=== PATIENT | female | born 1955 | race Caucasian/White ===

== ENCOUNTER 2017-12-16 00:04 | Observation (INO) | payer MEDICAID ==
[~2017-12-16] VITALS: Ht 162.6 cm; Wt 84.8 kg
[2017-12-16] VITALS (8 sets, daily range): BP systolic 116–163; BP diastolic 61–84; BMI 30.6
--- NOTE | ~2017-12-16 | HEMODYNAMI ---
PATIENT:COOPER MCDERMOTT MEDICAL RECORD: [id number] : 53 [id number] ADMISSION DATE: 12/16/17 Generatedon:12/16/201716:13 Patient name: COPOER MCDERMOTT Patient #: [id number] SSN: : 1955 Date of study: 12/16/2017 Page: Of Hemodynamic Procedure Report Patient Data Patient Demographics Procedure consent was obtained First Name: COOPER Gender: Female Last Name: SHARRON : 1955 Patient #: [id number] Age: 62 year(s) Race: Unknown Additional ID: [id number] Contact details [address]: [address] [place] [address] State: [place] City: [place] Zip code: [address] Past Medical History Allergies: No known allergies Admission Admission Data Admission Date: 12/16/2017 Admission Time: 3:20 [facility] Procedure Types Cath Procedure Diagnostic Procedure LHC LH w/Coronaries Sedation Charges Moderate Sedation up to 15 minutes PCI Procedure Coronary Stent Coronary Stent Initial Procedure Description Procedure Date Procedure Date: 12/16/2017 Procedure Start Time: 14:46 Procedure End Time: 15:23 Procedure Staff Name Function Costa Pete RT Scrub Elidia Awad RN Nurse Gino Simon MD Performing Physician Kaylyn Waggoner RT Scrub Timo Shah RT Washery Boss Procedure Data Cath Procedure Fluoroscopy Diagnostic fluoroscopy Total fluoroscopy Time: 7.4 time: 7.4 min min Diagnostic fluoroscopy Total fluoroscopy dose: 884 dose: 884 mGy mGy Contrast Material Contrast Material Type Amount (ml) Isovue 300 113 Entry Location Entry Primary Successful Side Size Upsize Upsize Entry Closure Correia ccessful Closure Location (Fr) 1 (Fr) 2 (Fr) Remarks Device Remarks Radial Right 6 Fr artery Short Femoral Right 6 Fr Manual artery Short Compression Estimated blood loss: 10 ml Diagnostic catheters Device Type Used For End Catheter Placement DIAGNOSTIC Parks 110cm 5 Procedure Fr catheter ([id number]) Procedure Complications No complications Procedure Medications Medication Administration Route Dosage Zofran I.V. 4 mg Oxygen etCO2 Nasal cannula 2 l/min Lidocaine 2% added to field 20 Heparin Flush Bag added to field 2 bags (1000units/500ml NS) 0.9% NaCl I.V. 100 ml/hr Versed I.V. 1 mg Fentanyl I.V. 50 mcg Radial Cocktail I.A. 1 syringe (Verapomil 2mg/Nitro 400mcg/Heparin 1500units) Versed I.V. 1 mg Fentanyl I.V. 50 mcg Versed I.V. 1 mg Heparin Bolus I.V. 4000 units Versed I.V. 1 mg Fentanyl I.V. 50 mcg Zofran I.V. 4 mg Fentanyl I.V. 50 mcg Hemodynamics Rest Heart Rate: 73 (bpm) Pressure Samples Time Site Value (mmHg) Purpose Heart Use Rate(bpm) 14:49 LV 127/9,12 Snapshot 99 14:49 AO 159/99(126) Pullback 95 Gradients Valve Time Site Site 2 Mean SEP/DFP Peak To Heart Use 1 (mmHg) (sec/min) Peak Rate (mmHg) (bpm) Aortic 14:49 LV AO 4 8 95 159/99(126) Calculations Valve P-P Mean Valve Index Valve Source Name Gradient Area Flow (cm2) Aortic 4 4 Snapshots Pre Cath Intra NCS Post Cath Vital Signs Time Heart Resp SPO2 etCO2 NIBP (mmHg) Rhythm Pain Sedation Rate (ipm) (%) (mmHg) Status Level (bpm) 14:42:07 73 20 99 27.6 Measuring NSR 0 (11) , 10(A) No pain 14:42:28 76 16 98 24.6 181/99(154) NSR 0 (11) , 10(A) No pain 14:46:44 85 34 95 15.7 176/95(129) NSR 0 (11) , 10(A) No pain 14:51:00 91 15 94 36.6 156/90(126) NSR 0 (11) , 9(A) No pain 14:55:10 88 18 94 12.7 161/89(132) NSR 0 (11) , 9(A) No pain 14:59:22 90 14 94 25.4 162/87(133) NSR 0 (11) , 9(A) No pain 15:03:34 88 13 95 34.4 166/86(135) NSR 0 (11) , 9(A) No pain 15:07:46 82 14 96 16.4 175/96(139) NSR 0 (11) , 9(A) No pain 15:12:00 90 16 95 29.9 190/103(150) NSR 0 (11) , 9(A) No pain 15:16:20 112 22 96 11.9 184/103(129) NSR 0 (11) , 10(A) No pain 15:20:38 93 25 94 27.6 173/90(128) NSR 0 (11) , 10(A) No pain 16:00:02 60 15 95 0 116/53(76) NSR 8 (11) , 10(A) Utterly horrible 16:12:19 76 15 95 0 140/70(107) NSR 3 (11) , 10(A) Tolerable Medications Time Medication Route Dose Verified Delivered Reason Not es Effectiveness by by 14:41:06 Zofran I.V. 4 mg Gino Brenner Per physician [facility] Alex[facility] Awad RN, MD 14:43:26 Oxygen etCO2 2 l/min Gino Brenner used for Nasal [facility] Alexis Awad RN procedure cannula 14:43:32 Lidocaine 2% added 20ml Gino Christian for local to vial [facility] anesthetic field MD MORGAN 14:43:38 Heparin Flush added 2 bags Gino Christian used for Bag to [facility] procedure (1000units/500ml field MD MORGAN NS) 14:43:46 0.9% NaCl I.V. 100 Gino Brenner Per physician ml/hr [facility] Alexis Awad RN, MD 14:43:54 Versed I.V. 1 mg Gino Brenner for sedation [facility] Alexis Awad RN, MD 14:44:00 Fentanyl I.V. 50 mcg Gino Brenner for sedation [facility] Alexis Awad RN, MD 14:47:06 Radial Cocktail I.A. 1 Gino Christian for (Verapomil syringe [facility] vasodilation 2mg/Nitro MD MORGAN 400mcg/Hepari 14:49:46 Versed I.V. 1 mg Gino Christian for sedation [facility] Alexis Simon MD, MD 14:49:50 Fentanyl I.V. 50 mcg Gino Christian for sedation [facility] Alexis Simon MD, MD 14:55:12 Versed I.V. 1 mg Gino Christian for sedation [facility] Alexis Simon MD, MD 15:01:46 Heparin Bolus I.V. 4000 Gino Brenner for nicolasa ified units [facility] Alexis Awad RN anticoagulation with dr MD parks 15:06:21 Versed I.V. 1 mg Gino Brenner for sedation [facility] Alexis Awad RN, MD 15:07:51 Fentanyl I.V. 50 mcg Gino Brenner for sedation [facility] Alexis Awad RN, MD 16:02:53 Zofran I.V. 4 mg Gino Brenner Per physician [facility] Alexis Awad RN, MD 16:04:36 Fentanyl I.V. 50 mcg Gino Brenner for leg pain [facility] Alexis Awad RN, MD Procedure Log Time Note 14:11:57 Timo Correiait RT(R) sent for patient. Start room use. 14:11:58 Time tracking: Regular hours (M-F 7:00 - 5:00) 14:12:02 Plan of Care:Hemodynamics will remain stable., Cardiac rhythm will remain stable., Comfort level will be maintained., Respiratory function will remain adequate., Patient/ family verbilizes understanding of procedure., Procedure tolerated without complication., Recovers from procedure without complications.. 14:31:06 Patient received from ED to CCL 2 Alert and oriented. Tansferred to table in Supine position. 14:31:11 Warm blankets applied, and estefania hugger turned on for patient comfort. 14:31:12 Correct patient and procedure confirmed by team. 14:31:13 Signed procedure consent form obtained from patient. 14:31:14 ECG and BP/O2 sat monitors applied to patient. 14:40:19 Vital chart was started 14:40:22 Baseline sample Acquired. 14:40:30 Rhythm: sinus rhythm 14:40:31 Full Disclosure recording started 14:40:35 H&P Date Dictated: 12/16/2017 ER History on chart.. 14:40:36 Pre-op teaching completed and patient verbalized understanding. 14:40:36 Pre-procedure instructions explained to patient. 14:40:39 Family in patients room. 14:40:56 Patient allergic to No known allergies 14:41:06 Zofran 4 mg I.V. was administered by Elidia Awad RN; Per physician; 14:41:48 Is the patient allergic to Iodine/contrast media? No. 14:41:50 Is patient on blood thinner?Yes 14:41:53 ACC The patient was administered the following blood thiners within the last 24 hours: ACCPlavix 14:41:54 Patient diabetic? No. 14:41:58 Patient not . Patient is over age 55. 14:42:06 Previous problem with sedation/anesthesia? Yes NAUSEA 14:42:26 Snore? Yes 14:42:27 Sleep apnea? No 14:42:28 Opens mouth fully? Yes 14:42:28 Deviated septum? No 14:42:29 Sticks out tongue? Yes 14:42:31 Airway obstruction? No ? 14:42:34 Dentures? No ? 14:42:35 Modified Felice's test Ulnar < 7 seconds 14:42:38 Patient pain scale 0/10 ?. 14:42:47 IV patent on arrival in left hand with 0.9% NaCl at [facility]. 14:42:52 Right Radial & Right Groin area was prepped with chlora-prep and draped in sterile fashion 14:42:53 Sharps counted by scrub and verified by R.N. 14:42:53 Alarms reviewed by R. N. 14:42:55 Final Timeout: patient, procedure, and site verified with staff and physician. All members of the team are in agreement. 14:42:55 --------ALL STOP TIME OUT------ 14:42:57 Right Radial & Right Groin site verified by team. 14:43:00 Physical assessment completed. ASA score P 2 - A patient with mild systemic disease as per Gino Simon MD. 14:43:04 Sedation plan: IV Moderate Sedation Medication:Versed, Fentanyl 14:43:08 Use device set Radial Dx or PCI 14:43:10 ACIST Syringe (70572) opened to sterile field. 14:43:12 Bag Decanter (2001S) opened to sterile field. 14:43:13 ACIST Hand Control (09288) opened to sterile field. 14:43:14 Tegaderm 4 x 4 (1626W) opened to sterile field. 14:43:14 ACIST Manifold (57158) opened to sterile field. 14:43:16 Medline Cath Pack ([id number]) opened to sterile field. 14:43:17 MBrace Wrist Support ([id number]) opened to sterile field. 14:43:17 DIAGNOSTIC WIRE .035 260cm J wire (947210) opened to sterile field. 14:43:18 SHEATH 6Fr Prelude Radial ([id number]) opened to sterile field. 14:43:26 Oxygen 2 l/min etCO2 Nasal cannula was administered by Elidia Awad RN; used for procedure; 14:43:32 Lidocaine 2% 20ml vial added to field was administered by Gino Simon MD; for local anesthetic; 14:43:38 Heparin Flush Bag (1000units/500ml NS) 2 bags added to field was administered by Gino Simon MD; used for procedure; 14:43:46 0.9% NaCl 100 ml/hr I.V. was administered by Elidia Awad RN; Per physician; 14:43:54 Versed 1 mg I.V. was administered by Elidia Awad RN; for sedation; 14:44:00 Fentanyl 50 mcg I.V. was administered by Elidia Awad RN; for sedation; 14:45:48 Zero performed for pressure channel P1 14:45:53 Procedure started. 14:46:27 Local anesthetic to right radial artery with Lidocaine 2% by Gino Simon MD.INITIAL ACCESS ONLY 14:46:47 A 6 Fr Short sheath was inserted into the Right Radial artery 14:47:06 Radial Cocktail (Verapomil 2mg/Nitro 400mcg/Heparin 1500units) 1 syringe I.A. was administered by Gino Simon MD; for vasodilation; 14:47:20 A DIAGNOSTIC Parks 110cm 5 Fr catheter (803685) was advanced over the wire and used for Procedure. 14:48:01 LV gram done using MCKEON 14:48:45 Injector settings: Ml/sec: 7, Volume: 15, 14:49:12 LV hemodynamics recorded. 14:49:26 EF : 55 % 14:49:46 Versed 1 mg I.V. was administered by Gino Simon MD; for sedation; 14:49:50 Fentanyl 50 mcg I.V. was administered by Gino Simon MD; for sedation; 14:50:16 Catheter exchanged over wire. 14:50:27 UNABLE TO ENGAGE CORONARY 14:51:32 GUIDE 6FR EBU 3.5 catheter ([id number]) opened to sterile field. 14:51:38 6 Fr EBU 3.5 guide catheter was inserted over the wire 14:52:30 UNABLE TO ENGAGE LT. CORONARY WILL GO GROIN 14:52:39 Guide catheter removed. 14:52:58 Local anesthetic to right femoral artery with Lidocaine 2% by Gino Simon MD.ADDITIONAL ACCESS 14:53:14 SHEATH 6FR [place] (ZLD967) opened to sterile field. 14:53:43 A 6 Fr Short sheath was inserted into the Right Femoral artery 14:55:12 Versed 1 mg I.V. was administered by Gino Simon MD; for sedation; 14:55:51 GUIDE 5FR AR 2.0 catheter (ZW5MH86) opened to sterile field. 14:56:03 RCA angiography performed. 14:56:10 Catheter exchanged over wire. 14:56:55 GUIDE 6FR EBU 3.5 SH catheter ([id number]) opened to sterile field. 14:57:02 6 Fr EBU 3.5 guide catheter was inserted over the wire 14:58:38 LCA angiography performed. 14:58:55 Catheter exchanged over wire. 14:59:37 INFLATOR Merit BasixCompak (DA7333) opened to sterile field. 14:59:38 WHISPER 300cm guide wire ([id number]) opened to sterile field. 15:00:17 GUIDE 6FR HS I catheter (LA6HSI) opened to sterile field. 15:00:29 6 Fr HS1 guide catheter was inserted over the wire 15:01:46 Heparin Bolus 4000 units I.V. was administered by Elidia Awad RN; for anticoagulation; verified with dr parks 15:04:00 WHISPER 300 wire advanced. 15:04:02 Wire advanced across lesion. 15:04:27 Inflate balloon Inflation number: 1 A EMERGE OTW 2.5 x 15 balloon ([id number]) was prepped and advanced across the Prox RCA, then inflated to 14 NATALY for 0:15 (min:sec). 15:04:45 Balloon removed over the wire. 15:06:21 Versed 1 mg I.V. was administered by Elidia Awad RN; for sedation; 15:06:55 Place stent Inflation Number: 2 A DARREN OTW 3.0 x 18 stent ([id number]) was prepped and advanced across the Prox RCA. The stent was deployed at 14 NATALY for 0:25 (min:sec). 15:07:51 Fentanyl 50 mcg I.V. was administered by Elidia Awad RN; for sedation; 15:: Stent catheter was removed intact over wire. 15::47 Guide catheter removed. 15::47 Wire removed. 15:09:53 Sheath removed intact; hemostasis achieved with Manual Compression to the Right Femoral artery. 15::56 Procedure ended.(Physican Out) 15:11:00 TR BAND Standard ([id number]) opened to sterile field. 15:11:04 FEMSTOP Gold (V73386) opened to sterile field. 15:19:54 Fluoroscopy time 07.40 minutes. 15:20:04 Fluoroscopy dose: 884 mGy 15:20:04 Flurop Dose total: 884 15:20:07 Contrast amount:Isovue 300 113ml. 15:20:10 Sharps counted by scrub and verified by R.N. 15:20:13 TR band inflated with 10cc of air. 15:20:27 Femstop placed over the right femoral artery at 250 mmHg. Hemostasis achieved. 15:20:46 FEMSTOP PLACED DUE TO HEMATOMA 15:20:49 Post-procedure physical assessment completed. ASA score P 2 - A patient with mild systemic disease as per Gino Simon MD. 15:20:51 Post procedure rhythm: sinus rhythm 15:20:54 Estimated blood loss: 10 ml 15:20:56 Patient needs reinforcement of post procedure teaching. 15:20:56 Post procedure instruction explained to patient.Patient verbalizes understanding. 15:21:37 Procedure type changed to Cath procedure, Diagnostic procedure, LHC, LHC w/Coronaries, Sedation Charges, Moderate Sedation up to 15 minutes, PCI procedure, Coronary Stent, Coronary Stent Initial 15:23:05 Procedure and supply charges have been captured, reviewed, submitted and are correct. 15:23:08 Procedure Complication : No complications 15:23:13 See physician's report for complete and final results. 15:23:13 Vital chart was stopped 15:23:16 Report given to PCU. 15:23:18 Patient transfered to PCU with Bed. 15:23:20 Full Disclosure recording stopped 15:23:20 Procedure ended. 15::26 End room use (Document Last) 15:58:21 pt brought back into room, awaiting bed on medical floor. pt c/o nausea and pain to rt leg. femstop remains in place with no change. dr parks called and orders for medication given. will cont to monitor. 16:02:53 Zofran 4 mg I.V. was administered by Elidia Awad RN; Per physician; 16:04:36 Fentanyl 50 mcg I.V. was administered by Elidia Awad RN; for leg pain; 16:13:11 pt being transferred to room 2109 via bed. pt symptoms improved with medication. Intervention Summary Intervention Notes Time ActionType Lesion and Equipment Action# Pressure Duration Attributes Used 15:04:27 Inflate Prox RCA EMERGE OTW 1 14 00:15 balloon 2.5 x 15 balloon ([id number]) 15:06:55 Place stent Prox RCA DARREN OTW 3.0 2 14 00:25 x 18 stent ([id number]) Device Usage Item Name Manufacture Quantity Catalog Number Hospital Part Current Minimal Lot# / Charge Number Stock Stock Serial# Code ACIST Syringe Acist 1 34166 670327 986125 286362 20 (67238) [employer] Inc Bag Decanter Microtek 1 2002S 474097 26802 114952 5 (2002S) Medical Inc. ACIST Hand Acist 1 18446 067852 692868 688279 5 Control (27995) [employer] Inc ACIST Manifold Acist 1 68438 263250 344297 412133 5 (21143) [employer] Systems Inc Tegaderm 4 x 4 3M 1 1626W 450492 004140 110077 5 (1626W) Medline Cath Cardinal 1 [id number] 428940 03903 131387 5 [facility] ([id number]) DIAGNOSTIC WIRE [facility] Joselito 1 422595 682771 793390 432490 30 .035 260cm J wire (751358) MBrace Wrist Advanced 1 140-0250-00 399277 27302 220775 5 Support Vascular (899373889) Dynamics SHEATH 6Fr Merit 1 [id number] 376155 905542 824398 5 Prelude Radial Medical ([id number]) DIAGNOSTIC Terumo 1 40-7756 356217 953265 786906 5 Parks 110cm 5 Fr catheter (817549) GUIDE 6FR EBU Medtronic 1 [id number] 368870 69027 383785 3 3.5 catheter ([id number]) SHEATH 6FR Terumo 1 MYI862 571212 058105 390427 40 [place] (XCC099) GUIDE 5FR AR Medtronic 1 DA5ML19 914221 109262 604243 1 2.0 catheter (IX0IE33) GUIDE 6FR EBU Medtronic 1 [id number] 821547 67566 324093 1 3.5 SH catheter ([id number]) INFLATOR Merit Merit 1 HJ9102 975113 787721 507996 15 sonesdeNakedRoom Medical (AI7341) WHISPER 300cm Spivey 1 [id number] 139331 178498 020062 5 guide wire Vascular ([id number]) GUIDE 6FR HS I Medtronic 1 LA6HSI 738395 03419 346923 1 catheter (LA6HSI) EMERGE OTW 2.5 [place] 1 [id number] 122623 232309 042627 5 [id number] x 15 balloon Scientific ([id number]) DARREN OTW 3.0 x Medtronic 1 [id number] 714499 5399744 081641 5 [id number] 18 stent ([id number]) TR BAND Terumo 1 [id number] 492505 749084 664736 40 Standard ([id number]) FEMSTOP Gold St Joselito 1 A02968 979345 913216 163055 5 (A00515) Signature Audit [place] Stage Time Signature Unsigned Intra-Procedure 12/16/2017 Kaylyn Waggoner 3:24:11 PM RT(R) RT(R) 12/16/2017 4:01:47 PM Intra-Procedure 12/16/2017 Kaylyn Waggoner 4:13:31 PM RT(R) [facility] [address] [place] [address]
--- NOTE | ~2017-12-16 | OP ---
PATIENT NAME: COOPER MCDERMOTT MEDICAL RECORD: [id number] :53 LOCATION:D.M2 D.2109 ADMISSION DATE:12/17/17 SURGEON: ODETTE BLANK MD DATE OF OPERATION: 12/16/2017 PROCEDURES: Left heart catheterization, selective coronary angiography, right femoral artery approach. Unable to complete procedure by right radial approach. The procedure was well tolerated. The patient returned to wilde. Sheath removed. ExoSeal device, manual pressure, and TR band were placed. FINDINGS: Left ventriculography in 30-degree MCKEON view: Normal wall motion and normal systolic function. CORONARY ANATOMY: LEFT MAIN: Left main is free of disease. LAD: Has may be 50% to 70% stenosis in its proximal portion. Circumflex: 80% stenosis. Right coronary artery: Obviously culprit artery with a hazy 90% stenosis in its proximal third. IMPRESSION AND PLAN: Staged intervention of the right coronary today and circumflex at a later date. DESCRIPTION OF PROCEDURE: Using a 6-Scottish sheath, a hockey stick guide and catheter provided excellent guide catheter support, followed by 300-cm Whisper wire was placed across the 90% occluded right down the distal portion of vessel. Pre-deployment balloon used was a 2.5 x 15 [place] balloon up to 10 atmospheres. Stent deployed was a 3.0 x 18-mm Resolute drug-eluting stent up to 14 atmospheres. Final angiography shows excellent resolution of 90% plus stenosis. No significant residual. MICHEL flow was 3 at the end of the procedure. Plavix was previously loaded. Heparin was used in the case. Circ will be done at a later date. TRANSINT:[id number] Voice Confirmation ID: [id number] DOCUMENT ID: [id number] ODETTE BLANK MD at 1449 CC: [id number] DICTATION DATE: 12/16/17 1517 WEIGHT CONTROL ENGINEER: 12/16/17 1606 DIS IN 12/18/[address] [place] [address]
--- NOTE | ~2017-12-16 | DS ---
PATIENT:COOPER MCDERMOTT :53 MEDICAL RECORD: [id number] DISCHARGE SUMMARY ADMISSION DATE: 12/16/17 DISCHARGE DATE: 12/18/17 DATE OF ADMISSION: 12/16/2017 DATE OF DISCHARGE: 12/18/2017 PROBLEM LIST: 1. Non-ST elevation myocardial infarction. 2. Hypertension. 3. Dyslipidemia. BRIEF HISTORY AND HOSPITAL COURSE: Transferred from [place] with non-ST elevation myocardial infarction. Underwent a diagnostic angiography, showed critical disease of right coronary. Underwent intervention of the right coronary with plan intervention to the circumflex at a later date. ACTIVITY: As tolerated. DIET: AHA diet. FOLLOWUP: Will be for a staged intervention at a later date. TRANSINT:[id number] Voice Confirmation ID: [id number] DOCUMENT ID: [id number] ODETTE BLANK MD at 0834 CC: [id number] DICTATION DATE: 01/12/18 1444 BUSINESS CENTER REPRESENTATIVE: 01/12/18 1500 DIS IN 12/18/17 [id number] [place] [address]
[2017-12-16] MEDS ORDERED: NORVASC5 MG PO (00:17)
[2017-12-16] MEDS ORDERED: COZAAR50 MG PO (00:17)
[2017-12-16] MEDS ORDERED: BENTYL 20 MG TA20 MG PO ×2 (00:18→16:31)
[2017-12-16] MEDS ORDERED: NEXIUM40 MG PO ×2 (00:18→16:31)
[2017-12-16] MEDS ORDERED: VITAMIN D250000 UNIT PO (00:19)
[2017-12-16 00:37] LABS: BASOPHILS 0.5 % (0-2); EOSINOPHILS 9.4 % (0-7); HEMATOCRIT 41.5 % (36.0-48.0); HEMOGLOBIN 14.5 g/dL (12-16); IMMATURE GRANULOCYTES 0.3 % (0-5); MCH 31.3 pg (26.0-34.0); MCHC 34.9 g/dL (31.0-37.0); MCV 89.4 fL (80.0-100.0); MEAN PLATELET VOLUME 11.7 fL (7.4-10.4); MONOCYTES 6.8 % (2-11); PLATELET COUNT 184 10x3/uL (130-400); RBC 4.64 10x6/uL (4.00-5.40); RDW 12.5 % (11.5-14.5); WBC 6.6 10x3/uL (4.8-10.8)
[2017-12-16 01:09] LABS: ALBUMIN 3.6 g/dL (3.4-5.0); ALKALINE PHOSPHATASE 97 U/L (46-116); CALC OSMOLALITY 279 mosm/kg (275-300); CALCIUM 8.3 mg/dL (8.5-10.1); CARBON DIOXIDE 25.2 mmol/L (21.0-32.0); CHLORIDE - SERUM 105 mmol/L (98-107); CKMB 1.2 U/L (0.0-3.6); CREATINE KINASE 119 UL (21-215); CREATININE - SERUM 1.3 mg/dL (0.6-1.3); GLUCOSE 159 mg/dL (74-106); POTASSIUM - SERUM 3.7 mmol/L (3.5-5.1); PROTEIN - SERUM 6.7 g/dL (6.4-8.2); SODIUM 137 mmol/L (136-145); UREA NITROGEN 22 mg/dL (7-18); eGFR NON AFRICAN AMERICAN 44 mL/min (90-120)
[2017-12-16 01:10] LABS: ALT (SGPT) 33 U/L (10-68); TROPONIN-I 0.076 ng/mL (0.000-0.060)
[2017-12-16 08:24] LABS: BASOPHILS 0.1 % (0-2); EOSINOPHILS 10.6 % (0-7); HEMATOCRIT 39.5 % (36.0-48.0); HEMOGLOBIN 13.4 g/dL (12-16); IMMATURE GRANULOCYTES 0.3 % (0-5); LYMPHOCYTES 23.9 % (15-50); MCH 30.4 pg (26.0-34.0); MCHC 33.9 g/dL (31.0-37.0); MCV 89.6 fL (80.0-100.0); MEAN PLATELET VOLUME 11.5 fL (7.4-10.4); MONOCYTES 5.5 % (2-11); NEUTROPHILS 59.6 % (40-80); PLATELET COUNT 164 10x3/uL (130-400); RBC 4.41 10x6/uL (4.00-5.40); RDW 12.6 % (11.5-14.5); WBC 7.8 10x3/uL (4.8-10.8)
[2017-12-16 09:02] LABS: CALCIUM 8.2 mg/dL (8.5-10.1); CARBON DIOXIDE 26.9 mmol/L (21.0-32.0); CREATININE - SERUM 1.3 mg/dL (0.6-1.3); POTASSIUM - SERUM 3.9 mmol/L (3.5-5.1)
[2017-12-16 09:05] LABS: TROPONIN-I 0.066 ng/mL (0.000-0.060)
[2017-12-16] MEDS ORDERED: NITROQUICK0.4 MG SL (16:30)
[2017-12-16] MEDS ORDERED: BAYER CHEWABLE81 MG PO (16:33)
[2017-12-17 01:12] VITALS: BP 159/68
[2017-12-17 05:57] VITALS: BP 144/67
[2017-12-17 13:08] VITALS: Ht 162.6 cm; Wt 84.8 kg
[2017-12-17 16:16] VITALS: BP 172/74
[2017-12-17 19:58] VITALS: BP 149/66
[2017-12-18 00:39] VITALS: BP 169/77
[2017-12-18 05:20] VITALS: BP 151/58
[2017-12-18 08:47] VITALS: BP 149/70
[2017-12-18] MEDS ORDERED: PLAVIX75 MG PO (11:46)
== END 2017-12-18 12:48 | disposition home or self-care (01) ==
LOC: D.ER 00:04 → D.EDHOLD 03:20 → OBSVTIME 03:20 → D.EDHOLD 03:20 → D.CLR 14:26 → D.M2 16:26
PROVIDERS: Family Medicine
DX: I21.4 Non-ST elevation (NSTEMI) myocardial infarction (principal); I10 Essential (primary) hypertension; K21.9 Gastro-esophageal reflux disease without esophagitis; I25.10 Atherosclerotic heart disease of native coronary artery without angina pectoris

== ENCOUNTER 2017-12-28 10:38 | Outpatient (CLI) | payer MEDICAID ==
[~2017-12-28] VITALS: Ht 162.6 cm; Wt 79.5 kg
--- NOTE | ~2017-12-28 | OP ---
PATIENT NAME: COOPER MCDERMOTT MEDICAL RECORD: [id number] :53 LOCATION:D.CAT ADMISSION DATE: SURGEON: ODETTE BLANK MD DATE OF OPERATION: 12/28/2017 PROCEDURE: PTCA stent to circumflex and LAD. For catheterization report, please see previous dictation. DESCRIPTION OF PROCEDURE: After the left femoral artery was cannulated via modified Seldinger technique, EBU 3.5 guiding catheter provided excellent guide catheter support. Followed down, a 300 cm Whisper wire was placed down the 80% stenosed circumflex down this portion of the vessel. Stent deployed was a 3.5 x 15 mm Resolute drug-eluting stent up to 14 atmospheres. Next, the more diffuse 80% LAD lesion was crossed with a same Whisper wire and a 3.0 x 18 mm Resolute drug-eluting stent was inflated up to 14 atmospheres. This showed a distal edge dissection and this was addressed with a 3.0 x 8 mm Resolute drug-eluting stent up to 14 atmospheres. Final angiography shows: 1. Excellent resolution of 80% circumflex. 2. Successful PTCA stenting to the LAD with more diffuse disease with 18 mm Resolute drug-eluting stent. Distal edge dissection addressed with a 3.0 x 8 mm Resolute drug-eluting stent. No significant residual on either vessel. Sheath closed with ExoSeal device. Heparin was used during the procedure. TRANSINT:[id number] Voice Confirmation ID: [id number] DOCUMENT ID: [id number] ODETTE BLANK MD at 0843 CC: [id number] DICTATION DATE: 12/28/17 1444 HOTEL STAFF MEMBER: 12/28/17 1454 DEP CLI 12/28/[address] [facility] [address] [id number]
--- NOTE | ~2017-12-28 | HEMODYNAMI ---
PATIENT:COOPER MCDERMOTT MEDICAL RECORD: [id number] : 53 LOCATION:TIM ADMISSION DATE: 12/28/17 Generatedon:12/28/201714:40 Patient name: COOPER MCDERMOTT Patient #: [id number] SSN: : 1955 Date of study: 12/28/2017 Page: Of Hemodynamic Procedure Report Patient Data Patient Demographics Procedure consent was obtained First Name: COOPER Gender: Female Last Name: SHARRON : 1955 Patient #: [id number] Age: 62 year(s) Race: Unknown Additional ID: [id number] Contact details [address]: [address] [place] [address] State: [place] City: [place] Zip code: [address] Past Medical History Allergies: No known allergies Admission Admission Data Admission Date: 12/28/2017 Admission Time: 10:38 Height (in.): 5.4 BSA: 0.22 (m2) Height (cm.): 13.72 BMI: 1904.75 (kg/m2) Weight (lbs.): 79 Weight (kg.): 35.83 Lab Results Lab Result Date: 12/28/2017 Lab Result Time: 0:00 Biochemistry Name Units Result Min Max BUN mg/dl 18 --(---*)-- 7 18 Creatinine mg/dl 1.3 --(---*)-- 0.6 1.3 CBC Name Units Result Min Max Hemoglobin g/dl 13.6 --(*---)-- 13.5 17.5 Procedure Procedure Types Cath Procedure PCI Procedure Coronary Stent Coronary Stent Initial x2 Procedure Description Procedure Date Procedure Date: 12/28/2017 Procedure Start Time: 14:15 Procedure End Time: 14:38 Procedure Staff Name Function Gino Simon MD Performing Physician Kaylyn Waggoner RT Monitor Timo Shah RT Scrub Jesus Lamas RN Nurse Inge Wadsworth RT Monitor Procedure Data Cath Procedure Fluoroscopy Diagnostic fluoroscopy Total fluoroscopy Time: 6.5 time: 6.5 min min Diagnostic fluoroscopy Total fluoroscopy dose: dose: 1049 mGy 1049 mGy Contrast Material Contrast Material Type Amount (ml) Isovue 300 142 Entry Location Entry Primary Successful Side Size Upsize Upsize Entry Closure Succes sful Closure Location (Fr) 1 (Fr) 2 (Fr) Remarks Device Remarks Femoral Left 6 Fr Exoseal artery Short Estimated blood loss: 10 ml Procedure Complications No complications Procedure Medications Medication Administration Route Dosage 0.9% NaCl I.V. 100 ml/hr Oxygen etCO2 Nasal cannula 2 l/min Heparin Flush Bag added to field 2 bags (1000units/500ml NS) Lidocaine 2% added to field 20 Benadryl I.V. 50 mg Dilaudid I.V. 1 mg Zofran I.V. 4 mg Dilaudid I.V. 1 mg Heparin Bolus I.V. 5000 units Lopressor I.V. 5 mg Hemodynamics Rest BSA: 0.22 (m2) HGB: 13.6 (g/dl) O2 Consumption: Estimated: 20.53 (ml/min) O2 Con sumption indexed: Estimated:93.32 (ml/min/m) Heart Rate: 68 (bpm) Snapshots Pre Cath Intra NCS Post Cath Vital Signs Time Heart Resp SPO2 etCO2 NIBP (mmHg) Rhythm Pain Sedation Rate (ipm) (%) (mmHg) Status Level (bpm) 14:09:13 95 11 95 0 168/93(139) NSR 0 (11) 10(A) , No pain 14:14:09 74 14 98 30.8 152/67(117) NSR 0 (11) 10(A) , No pain 14:19:02 95 11 92 39.1 169/86(130) NSR 0 (11) 10(A) , No pain 14:24:04 92 14 90 42.1 172/77(139) NSR 0 (11) 10(A) , No pain 14:29:07 80 19 94 33.8 164/74(120) NSR 0 (11) 9(A) , No pain 14:34:08 79 15 91 40.6 152/71(126) NSR 0 (11) 9(A) , No pain 14:39:17 70 11 97 37.6 146/72(119) NSR 0 (11) 10(A) , No pain Medications Time Medication Route Dose Verified Delivered Reason Notes Effectiveness by by 14:12:33 0.9% NaCl I.V. 100 Jesus Jesus Per physician ml/hr Adams Lamas RN RN 14:12:55 Oxygen etCO2 2 Jesus Jesus Per physician Nasal l/min Adams Lamas cannula RN RN 14:14:50 Heparin Flush added 2 Jesus Jesus used for Bag to bags Adams Lamas procedure (1000units/500ml field RN RN NS) 14:14:59 Lidocaine 2% added 20ml Jesus Jesus for local to vial Adams Lamas anesthetic field RN RN 14:15:14 Benadryl I.V. 50 mg Jesus Jesus Per physician Adams Lamas RN RN 14:15:29 Dilaudid I.V. 1 mg Jesus Jesus for sedation Adams Lamas RN RN 14:15:48 Zofran I.V. 4 mg Jesus Jesus for nausea Adams Lamas RN RN 14:17:44 Dilaudid I.V. 1 mg Jesus Jesus for sedation Adams Lamas RN RN 14:19:55 Heparin Bolus I.V. 5000 Jesus Jesus for units Adams Lamas anticoagulation RN RN 14:22:01 Lopressor I.V. 5 mg Jesus Jesus for Adams Lamas hypertension RN conservation policy analyst Log Time Note 13:45:59 H&P Date Dictated: 12/21/2017 Within 30 days and on chart., H&P Addendum completed by physician on day of procedure. (MUST COMPLETE FOR ALL OUTPATIENTS). 13:46:26 Time tracking: Regular hours (M-F 7:00 - 5:00) 13:46:29 Plan of Care:Hemodynamics will remain stable., Cardiac rhythm will remain stable., Comfort level will be maintained., Respiratory function will remain adequate., Patient/ family verbilizes understanding of procedure., Procedure tolerated without complication., Recovers from procedure without complications.. 13:46:31 Signed procedure consent form obtained from patient. 13:48:04 Lab Result : Creatinine 1.3 mg/dl 13:48:04 Lab Result : BUN 18 mg/dl 13:48:04 Lab Result : Hemoglobin 13.6 g/dl 13:49:05 Patient Height : 5.4 inches 13:49:10 Patient Weight : 79 lbs 13:49:35 Timo Shah RT(R) sent for patient. Start room use. 13:51:26 Patient received from Pre/Post Procedure Room to CCL 1 Alert and oriented. Tansferred to table in Supine position. 13:51:28 Warm blankets applied, and estefania hugger turned on for patient comfort. 13:51:29 Correct patient and procedure confirmed by team. 13:51:30 ECG and BP/O2 sat monitors applied to patient. 14:01:01 Vital chart was started 14:01:04 Baseline sample Acquired. 14:01:08 Rhythm: sinus rhythm 14:01:10 Full Disclosure recording started 14:01:10 Pre-procedure instructions explained to patient. 14:01:11 Pre-op teaching completed and patient verbalized understanding. 14:01:13 Family in patients room. 14:01:17 Patient NPO since Midnight. 14:01:22 Patient allergic to No known allergies 14:01:24 Is the patient allergic to Iodine/contrast media? No. 14:01:27 Is patient on blood thinner?Yes 14:01:29 ACC The patient was administered the following blood thiners within the last 24 hours: ACCPlavix 14:01:32 Patient diabetic? No. 14:01:42 Patient not . Patient is over age 55. 14:02:10 Previous problem with sedation/anesthesia? Yes PT. HAD AN ADVERSE REACTION TO VERSED/FENTANYL 14:02:12 Snore? Yes 14:02:14 Sleep apnea? No 14:02:15 Deviated septum? Yes 14:02:15 Opens mouth fully? Yes 14:02:16 Sticks out tongue? Yes 14:02:19 Airway obstruction? No ? 14:02:32 Dentures? No ? 14:02:38 Pre procedure: left dorsailis pedis pulse 2+ Normal; easily identifiable; not easily obliterated 14:02:53 Patient pain scale 0/10 ?. 14:09:10 IV patent on arrival in left hand with 0.9% NaCl at O. 14:09:14 Lab results completed and on chart. 14:09:16 Left groin area was prepped with chlora-prep and draped in sterile fashion 14:09:17 Alarms reviewed by R. N. 14:09:17 Sharps counted by scrub and verified by RGracielaN. : --------ALL STOP TIME OUT------ : Final Timeout: patient, procedure, and site verified with staff and physician. All members of the team are in agreement. 14:09:22 Left groin site verified by team. 14:09:24 Physical assessment completed. ASA score P 2 - A patient with mild systemic disease as per Gino Simon MD. 14::27 Sedation plan: IV Moderate Sedation Medication:Versed, Fentanyl 14::44 Use device set CATH PACK 14:09:46 ACIST Syringe (45850) opened to sterile field. 14:09:46 ACIST Hand Control (17463) opened to sterile field. 14:09:46 ACIST Manifold (93080) opened to sterile field. 14:09:47 Medline Cath Pack ([id number]) opened to sterile field. 14:09:47 Bag Decanter (2002S) opened to sterile field. 14:09:48 DIAGNOSTIC WIRE .035 260cm J wire (211862) opened to sterile field. 14:10:14 WHISPER 300cm guide wire ([id number]) opened to sterile field. 14:10:14 INFLATOR Merit BasixCompak (BA3543) opened to sterile field. 14:10:15 SHEATH 6FR Berwick (YHO387) opened to sterile field. 14:12:33 0.9% NaCl 100 ml/hr I.V. was administered by Jesus Lamas RN; Per physician; 14:12:55 Oxygen 2 l/min etCO2 Nasal cannula was administered by Jesus Lamas RN; Per physician; 14:14:50 Heparin Flush Bag (1000units/500ml NS) 2 bags added to field was administered by Jesus Lamas RN; used for procedure; 14:14:56 Zero performed for pressure channel P1 14:14:59 Lidocaine 2% 20ml vial added to field was administered by Jesus Lamas RN; for local anesthetic; 14:15:02 Procedure started. 14:15:14 Benadryl 50 mg I.V. was administered by Jesus Lamas RN; Per physician; 14:15:16 Zero performed for pressure channel P1 14:15:29 Dilaudid 1 mg I.V. was administered by Jesus Lamas RN; for sedation; 14:15:34 Local anesthetic to right femoral artery with Lidocaine 2% by Gino Simon MD.INITIAL ACCESS ONLY 14:15:46 A 6 Fr Short sheath was inserted into the Left Femoral artery 14:15:48 Zofran 4 mg I.V. was administered by Jesus Lamas RN; for nausea; 14:16:43 GUIDE 6FR EBU 3.5 catheter ([id number]) opened to sterile field. 14:16:57 6 Fr EBU 3.5 guide catheter was inserted over the wire 14:17:44 Dilaudid 1 mg I.V. was administered by Jesus Lamas RN; for sedation; 14:17:56 WHISPER wire advanced. 14:19:55 Heparin Bolus 5000 units I.V. was administered by Jesus Lamas RN; for anticoagulation; 14:22:01 Lopressor 5 mg I.V. was administered by Jesus Lamas RN; for hypertension; 14:22:15 Place stent Inflation Number: 1 A DARREN OTW 3.5 x 15 stent ([id number]) was prepped and advanced across the Mid CX. The stent was deployed at 14 NATALY for 0:27 (min:sec). 14:22:51 Wire redirected to LAD. 14:26:44 Stent catheter was removed intact over wire. 14:29:55 Place stent Inflation Number: 1 A DARREN OTW 3.0 x 18 stent ([id number]) was prepped and advanced across the Mid LAD. The stent was deployed at 14 NATALY for 0:30 (min:sec). 14:31:32 Inflation number: 2 The stent balloon was then re-inflated across the Mid LAD to 6 NATALY for 0:21 (min:sec). 14:32:12 Stent catheter was removed intact over wire. 14:35:23 Place stent Inflation Number: 3 A DARREN RX 3.0 x 08 stent ([id number]) was prepped and advanced across the Mid LAD. The stent was deployed at 14 NATALY for 0:43 (min:sec). 14:35:27 Stent catheter was removed intact over wire. 14:35:28 Wire removed. 14:35:29 Guide catheter removed. 14:35:55 EXOSEAL 6Fr (EX600) opened to sterile field. 14:36:09 Sheath removed intact; hemostasis achieved with Exoseal to the Left Femoral artery. 14:36:11 Procedure ended.(Physican Out) 14:36:22 Fluoroscopy time 06.50 minutes. 14:36:28 Flurop Dose total: 1049 14:36:28 Fluoroscopy dose: 1049 mGy 14:36:33 Contrast amount:Isovue 300 142ml. 14:36:36 Sharps counted by scrub and verified by R.N. 14:36:38 Insertion/operative site no bleeding no hematoma. 14:36:41 Post Procedure Pulses reassessed and unchanged 14:36:46 Post-procedure physical assessment completed. ASA score P 2 - A patient with mild systemic disease as per Gino Simon MD. 14:37:33 Post procedure rhythm: sinus rhythm 14:37:37 Estimated blood loss: 10 ml 14:37:39 Post procedure instruction explained to patient.Patient verbalizes understanding. 14:38:09 Procedure type changed to Cath procedure, PCI procedure, Coronary Stent, Coronary Stent Initial x2 14:38:10 Procedure and supply charges have been captured, reviewed, submitted and are correct. 14:38:33 Procedure Complication : No complications 14:38:35 Vital chart was stopped 14:38:36 See physician's report for complete and final results. 14:38:38 Report given to Pre/Post Procedure Room. 14:38:40 Patient transfered to Pre/Post Procedure Room with Stretcher. 14:38:43 Procedure ended. 14:38:43 Full Disclosure recording stopped 14:38:50 End room use (Document Last) Intervention Summary Intervention Notes Time ActionType Lesion and Equipment Used Action# Pressure Duration Attributes 14:22:15 Place stent Mid CX DARREN OTW 3.5 x 1 14 00:27 15 stent ([id number]) 14:29:55 Place stent Mid LAD DARREN OTW 3.0 x 1 14 00:30 18 stent ([id number]) 14:31:32 Reinflate Mid LAD DARREN OTW 3.0 x 2 6 00:21 stent 18 stent balloon ([id number]) 14:35:23 Place stent Mid LAD DARREN RX 3.0 x 3 14 00:43 08 stent ([id number]) Device Usage Item Name Manufacture Quantity Catalog Hospital Part [facility] Lot# / Number Charge Number Stock Stock Serial# Code ACIST Syringe Acist 1 83070 152566 240173 606776 20 (29147) [employer] Systems Inc ACIST Hand Acist 1 35182 227244 999233 783517 5 Control Medical (80451) Systems Inc ACIST Manifold Acist 1 60175 427005 560112 069332 5 (47106) Medical Systems Inc Medline Cath Cardinal 1 [id number] 867270 03757 891672 5 Pack Health ([id number]) Bag Decanter Microtek 1 2001S 069138 03804 487923 5 (2001S) Medical Inc. DIAGNOSTIC [facility] [place] 1 800197 384938 972213 139040 30 WIRE .035 260cm J wire (328006) WHISPER 300cm Spivey 1 [id number] 602669 633739 589776 5 guide wire Vascular ([id number]) INFLATOR Merit Merit 1 UB8640 225078 064726 812220 15 Givey (UU8340) SHEATH 6FR Terumo 1 BHM189 849569 428406 905546 40 Berwick (FGH287) GUIDE 6FR EBU Medtronic 1 [id number] 615452 72908 780751 3 3.5 catheter ([id number]) DARREN OTW 3.5 x Medtronic 1 [id number] 484194 8235830 381988 5 [id number] 15 stent ([id number]) DARREN OTW 3.0 x Medtronic 1 [id number] 761012 4494884 774293 5 [id number] 18 stent ([id number]) DARREN RX 3.0 x Medtronic 1 [id number] 617094 5645944 276469 5 [id number] 08 stent ([id number]) EXOSEAL 6Fr Cardinal 1 EX600 295852 451386 987545 10 (EX600) Health Signature Audit [place] Stage Time Signature Unsigned Intra-Procedure 12/28/2017 Inge Wadsworth 2:40:24 PM RT(R) Signatures Monitor : Kaylyn Waggoner Signature : RT Date : Time : Monitor : Inge Caballerour Signature : RT Date : Time : [place] [address] [place] [address]
[~2017-12-28 10:38] MED LIST: BAYER CHEWABLE81 MG PO; BENTYL 20 MG TA20 MG PO; COZAAR50 MG PO; NEXIUM40 MG PO; NITROQUICK0.4 MG SL; NORVASC5 MG PO; PLAVIX75 MG PO; VITAMIN D250000 UNIT PO
[2017-12-28 11:08] VITALS: BP 159/75; Ht 162.6 cm; Wt 79.5 kg
[2017-12-28 11:30] LABS: BASOPHILS 0.3 % (0-2); EOSINOPHILS 9.1 % (0-7); HEMATOCRIT 39.6 % (36.0-48.0); HEMOGLOBIN 13.6 g/dL (12-16); IMMATURE GRANULOCYTES 0.3 % (0-5); LYMPHOCYTES 19.4 % (15-50); MCH 30.8 pg (26.0-34.0); MCHC 34.3 g/dL (31.0-37.0); MCV 89.6 fL (80.0-100.0); MEAN PLATELET VOLUME 11.4 fL (7.4-10.4); MONOCYTES 7.4 % (2-11); NEUTROPHILS 63.5 % (40-80); RBC 4.42 10x6/uL (4.00-5.40); RDW 12.6 % (11.5-14.5); WBC 6.5 10x3/uL (4.8-10.8)
[2017-12-28 11:34] LABS: PLATELET COUNT 229 10x3/uL (130-400)
[2017-12-28 11:45] LABS: ANION GAP 12.6 mmol/L (8-16); CALCIUM 8.8 mg/dL (8.5-10.1); CARBON DIOXIDE 26.9 mmol/L (21.0-32.0); CREATININE - SERUM 1.3 mg/dL (0.6-1.3); POTASSIUM - SERUM 4.5 mmol/L (3.5-5.1)
== END 2017-12-28 18:42 ==
LOC: D.CATH 10:38
PROVIDERS: Internal Medicine Interventional Cardiology
DX: I25.119 Atherosclerotic heart disease of native coronary artery with unspecified angina pectoris (principal); Z01.812 Encounter for preprocedural laboratory examination

== ENCOUNTER 2018-05-16 11:51 | Outpatient (CLI) | payer MEDICAID ==
[~2018-05-16] VITALS: Ht 162.6 cm; Wt 78.2 kg
--- NOTE | ~2018-05-16 | HEMODYNAMI ---
PATIENT:COOPER MCDERMOTT MEDICAL RECORD: [id number] : 53 LOCATION:TIM ADMISSION DATE: 05/16/18 Generatedon:05/16/201815:19 Patient name: COOPER MCDERMOTT Patient #: [id number] SSN: : 1955 Date of study: 05/16/2018 Page: Of Hemodynamic Procedure Report Patient Data Patient Demographics Procedure consent was obtained First Name: COOPER Gender: Female Last Name: SHARRON : 1955 Patient #: [id number] Age: 63 year(s) Race: Unknown Additional ID: [id number] Contact details Address: [address] [place] [address] State: [place] City: [place] Zip code: [address] Past Medical History Allergies: No known allergies Admission Admission Data Admission Date: 05/16/2018 Admission Time: 11:51 Lab Results Lab Result Date: 05/16/2018 Lab Result Time: 12:45 Biochemistry Name Units Result Min Max BUN mg/dl 25 --(----)-* 7 18 Creatinine mg/dl 1.4 --(----)*- 0.6 1.3 CBC Name Units Result Min Max Hematocrit % 39.7 -*(----)-- 42 54 Hemoglobin g/dl 13.9 --(*---)-- 13.5 17.5 Procedure Procedure Types Cath Procedure Diagnostic Procedure [facility] w/Coronaries Sedation Charges Moderate Sedation up to 15 minutes PCI Procedure Coronary Stent Coronary Stent Initial Procedure Description Procedure Date Procedure Date: 05/16/2018 Procedure Start Time: 15:00 Procedure End Time: 15:14 Procedure Staff Name Function Gino Simon MD Performing Physician Elidia Awad RN Nurse Bossman Bustos RT Monitor Verenice Posey RT Scrub Procedure Data Cath Procedure Fluoroscopy Diagnostic fluoroscopy Total fluoroscopy Time: 4.3 time: 4.3 min min Diagnostic fluoroscopy Total fluoroscopy dose: dose: 277.54 mGy 277.54 mGy Contrast Material Contrast Material Type Amount (ml) Isovue 300 95 Entry Location Entry Primary Successful Side Size Upsize Upsize Entry Closure Succes sful Closure Location (Fr) 1 (Fr) 2 (Fr) Remarks Device Remarks Femoral Right 5 Fr 6 Fr artery Short Estimated blood loss: 10 ml Diagnostic catheters Device Type Used For End Catheter Placement MULTIPACK JL 4.0 5Fr Procedure catheter MULTIPACK 3DRC 5Fr Procedure catheter MULTIPACK Pigtail 5 Fr Procedure catheter Procedure Complications No complications Procedure Medications Medication Administration Route Dosage Oxygen etCO2 Nasal cannula 2 l/min Lidocaine 2% added to field 20 Heparin Flush Bag added to field 2 bags (1000units/500ml NS) 0.9% NaCl I.V. 100 ml/hr Zofran I.V. 4 mg Dilaudid I.V. 1 mg Ativan 1 mg Dilaudid I.V. 1 mg Ativan 1 mg Heparin Bolus I.V. 4000 units Hemodynamics Rest HGB: 13.9 (g/dl) Heart Rate: 77 (bpm) Pressure Samples Time Site Value (mmHg) Purpose Heart Use Rate(bpm) 15:05 LV 157/26,27 Snapshot 88 Gradients Valve Time Site Site Mean SEP/DFP Peak To Heart Use 1 2 (mmHg) (sec/min) Peak Rate (mmHg) (bpm) Aortic 15:05 LV AO 87 Snapshots Pre Cath Intra NCS Post Cath Vital Signs Time Heart Resp SPO2 etCO2 NIBP (mmHg) Rhythm Pain Sedation Rate (ipm) (%) (mmHg) Status Level (bpm) 14:44:06 75 32 90 31.3 155/77(142) NSR 0 (11) 10(A) , No pain 14:50:56 79 17 93 39.6 146/94(130) NSR 0 (11) 10(A) , No pain 14:55:26 82 39 79 32.1 144/92(121) NSR 0 (11) 10(A) , No pain 14:59:58 77 18 97 15.6 155/77(122) NSR 0 (11) 10(A) , No pain 15:04:37 91 17 94 20.9 165/83(120) NSR 0 (11) 9(A) , No pain 15:09:18 85 15 96 38.1 173/83(141) NSR 0 (11) 9(A) , No pain 15:14:17 97 12 98 38.8 Measuring NSR 0 (11) 10(A) , No pain 15:18:23 84 16 95 38.1 177/97(134) NSR 0 (11) 10(A) , No pain Medications Time Medication Route Dose Verified Delivered Reason Notes Effectiveness by by 14:42:50 Oxygen etCO2 2 Gino Buffie used for Nasal l/min [facility] Alex[facility] Awad RN procedure cannula 14:42:56 Lidocaine 2% added 20ml Gino Buffie used for to vial [facility] Alexis Awad RN procedure field 14:43:02 Heparin Flush added 2 Gino Buffie used for Bag to bags [facility] Alexis Awad RN procedure (1000units/500ml field MORGAN NS) 14:43:10 0.9% NaCl I.V. 100 Gino Pattersonie Per physician ml/hr [facility] Alexis Awad RN, MD 14:46:03 Zofran I.V. 4 mg Gino Brenner used for [facility] Alexis quarles MD 14:57:23 Dilaudid I.V. 1 mg Gino Brenner for sedation [facility] Alexis Awad RN, MD 15:00:10 Ativan IV. 1 mg Gino Buffie for sedation [facility] Alexis Awad RN, MD 15:03:22 Dilaudid I.V. 1 mg Gino Pattersonie for sedation [facility] Alexis Aawd RN, MD 15:06:27 Ativan IV. 1 mg Gino Pattersonie for sedation [facility] Alexis Awad RN, MD 15:08:12 Heparin Bolus I.V. 4000 Gino Pattersonie for verif ied units [facility] Alexis Awad RN anticoagulation with dr MD dubon Procedure Log Time Note 14:13:45 Time tracking: Regular hours (M-F 7:00 - 5:00) 14:13:49 Plan of Care:Hemodynamics will remain stable., Cardiac rhythm will remain stable., Comfort level will be maintained., Respiratory function will remain adequate., Patient/ family verbilizes understanding of procedure., Procedure tolerated without complication., Recovers from procedure without complications.. 14:25:05 Elidia Awad RN sent for patient. Start room use. 14:30:45 Patient received from Pre/Post Procedure Room to CCL 3 Alert and oriented. Tansferred to table in Supine position. 14:30:46 Warm blankets applied, and estefania hugger turned on for patient comfort. 14:30:47 Correct patient and procedure confirmed by team. 14:30:48 Signed procedure consent form obtained from patient. 14:30:49 ECG and BP/O2 sat monitors applied to patient. 14:30:57 H&P Date Dictated: 05/12/2018 Within 30 days and on chart., H&P Addendum completed by physician on day of procedure. (MUST COMPLETE FOR ALL OUTPATIENTS). 14:30:58 Pre-procedure instructions explained to patient. 14:30:59 Pre-op teaching completed and patient verbalized understanding. 14:30:59 Family in waiting room. 14:31:01 Patient NPO since Breakfast. 14:42:38 Vital chart was started 14:42:42 Baseline sample Acquired. 14:42:45 Rhythm: sinus rhythm 14:42:47 Full Disclosure recording started 14:42:50 Oxygen 2 l/min etCO2 Nasal cannula was administered by Elidia Awad RN; used for procedure; 14:42:53 Patient allergic to No known allergies 14:42:54 Is the patient allergic to Iodine/contrast media? No. 14:42:56 Lidocaine 2% 20ml vial added to field was administered by Elidia Awad RN; used for procedure; 14:42:56 Is patient on blood thinner?Yes 14:42:58 ACC The patient was administered the following blood thiners within the last 24 hours: ACCPlavix 14:43:00 Patient diabetic? No. 14:43:02 Heparin Flush Bag (1000units/500ml NS) 2 bags added to field was administered by Elidia Awad RN; used for procedure; 14:43:07 Previous problem with sedation/anesthesia? Yes nausea 14:43:10 0.9% NaCl 100 ml/hr I.V. was administered by Elidia Awad RN; Per physician; 14:43:10 Snore? Yes 14:43:15 Sleep apnea? No 14:43:18 Deviated septum? No 14:43:19 Opens mouth fully? Yes 14:43:20 Sticks out tongue? Yes 14:43:22 Airway obstruction? No ? 14:43:23 Dentures? No ? 14:43:26 Pre procedure: right dorsailis pedis pulse 2+ Normal; easily identifiable; not easily obliterated 14:43:28 Patient pain scale 0/10 ?. 14:43:33 IV patent on arrival in left wrist with 0.9% NaCl at [facility]. 14:46:03 Zofran 4 mg I.V. was administered by Elidia Awad RN; used for procedure; 14:51:20 Lab Result : Creatinine 1.4 mg/dl 14:51:20 Lab Result : BUN 25 mg/dl 14:51:20 Lab Result : Hemoglobin 13.9 g/dl 14:51:20 Lab Result : Hematocrit 39.7 % 14:51:22 Lab results completed and on chart. 14:51:25 Right groin area was prepped with chlora-prep and draped in sterile fashion 14:51:26 Alarms reviewed by R. N. 14:51:26 Sharps counted by scrub and verified by R.N. 14:51:29 Use device set Femoral Dx 14:51:30 ACIST Syringe (78743) opened to sterile field. 14:51:30 Bag Decanter (2002S) opened to sterile field. 14:51:33 ACIST Hand Control (55976) opened to sterile field. 14:51:33 ACIST Manifold (79165) opened to sterile field. 14:51:34 DIAGNOSTIC Multipack 5Fr catheter set ([id number]) opened to sterile field. 14:51:34 Tegaderm 4 x 4 (1626W) opened to sterile field. 14:51:36 SHEATH 5FR Spicer (WCP234) opened to sterile field. 14:51:37 Medline Cath Pack ([id number]) opened to sterile field. 14:51:39 DIAGNOSTIC WIRE .035 260cm J wire (783131) opened to sterile field. 14:55:40 Physician arrived 14:55:41 --------ALL STOP TIME OUT------ 14:55:41 Final Timeout: patient, procedure, and site verified with staff and physician. All members of the team are in agreement. 14:55:43 Right groin site verified by team. 14:55:45 Physical assessment completed. ASA score P 2 - A patient with mild systemic disease as per Gino Simon MD. 14:55:49 Sedation plan: IV Moderate Sedation Medication:Versed, Fentanyl 14:57:23 Dilaudid 1 mg I.V. was administered by Elidia Awad RN; for sedation; 15:00:02 Procedure started. 15:00:06 Local anesthetic to right femoral artery with Lidocaine 2% by Gino Simon MD.INITIAL ACCESS ONLY 15:00:10 Ativan 1 mg IV. was administered by Elidia Awad RN; for sedation; 15:00:13 A 5 Fr sheath was inserted into the Right Femoral artery 15:01:22 A MULTIPACK JL 4.0 5Fr catheter was advanced over the wire and used for Procedure. 15:01:52 LCA angiography performed. 15:02:41 SHEATH 6FR Spicer (MJM200) opened to sterile field. 15:02:42 INFLATOR Merit BasixCompak (JC9274) opened to sterile field. 15:03:01 Catheter exchanged over wire. 15:03:05 A MULTIPACK 3DRC 5Fr catheter was advanced over the wire and used for Procedure. 15:03:22 Dilaudid 1 mg I.V. was administered by Elidia Awad RN; for sedation; 15:04:39 RCA angiography performed. 15:04:43 Catheter exchanged over wire. 15:04:47 A MULTIPACK Pigtail 5 Fr catheter was advanced over the wire and used for Procedure. 15:05:26 LV gram done using MCKEON 15:05:29 Injector settings: Ml/sec: 10, Volume: 20, 15:05:30 LV hemodynamics recorded. 15:05:38 EF : 55 % 15:05:50 Catheter removed. 15:05:55 Sheath upsized to a 6 Fr Short. 15:06:27 Ativan 1 mg IV. was administered by Elidia Awad RN; for sedation; 15:07:37 GUIDE 6FR JL 4.0 catheter ([id number]) opened to sterile field. 15:07:46 6 Fr JL 4 guide catheter was inserted over the wire 15:07:58 WHISPER 300cm guide wire ([id number]) opened to sterile field. 15:08:12 Heparin Bolus 4000 units I.V. was administered by Elidia Awad RN; for anticoagulation; verified with dr dubon 15:09:13 WHISPER wire advanced. 15:11:22 Wire advanced across lesion. 15:12:28 Place stent Inflation Number: 1 A DARREN OTW 3.0 x 12 stent ([id number]) was prepped and advanced across the Prox LAD. The stent was deployed at 14 NATALY for 0:30 (min:sec). 15:12:51 Stent catheter was removed intact over wire. 15:12:51 Wire removed. 15:12:51 Guide catheter removed. 15:12:58 EXOSEAL 6Fr (EX600) opened to sterile field. 15:13:03 Procedure ended.(Physican Out) 15:13:23 Fluoroscopy time 04.30 minutes. 15:13:29 Flurop Dose total: 277.54 15:13:29 Fluoroscopy dose: 277.54 mGy 15:13:33 Contrast amount:Isovue 300 95ml. 15:13:34 Sharps counted by scrub and verified by R.N. 15:13:35 Insertion/operative site no bleeding no hematoma. 15:13:37 Post-op/insertion site Right Femoral artery dressed using a 4 x 4 and Tegaderm. 15:13:41 Post right femoral artery:stable, soft, clean and dry 15:13:43 Post Procedure Pulses reassessed and unchanged 15:13:49 Post-procedure physical assessment completed. ASA score P 2 - A patient with mild systemic disease as per Gino Simon MD. 15:13:50 Post procedure rhythm: unchanged. 15:13:53 Estimated blood loss: 10 ml 15:13:55 Post procedure instruction explained to patient.Patient verbalizes understanding. 15:13:55 Patient needs reinforcement of post procedure teaching. 15:14:13 Procedure type changed to Cath procedure, Diagnostic procedure, LHC, LHC w/Coronaries, Sedation Charges, Moderate Sedation up to 15 minutes, PCI procedure, Coronary Stent, Coronary Stent Initial 15:14:34 Procedure and supply charges have been captured, reviewed, submitted and are correct. 15:14:36 Procedure Complication : No complications 15:14:38 Vital chart was stopped 15:14:38 See physician's report for complete and final results. 15:14:39 Report given to Pre/Post Procedure Room. 15:14:42 Patient transfered to Pre/Post Procedure Room with Stretcher. 15:14:43 Procedure ended. 15:14:43 Full Disclosure recording stopped 15:15:50 End room use (Document Last) Intervention Summary Intervention Notes Time ActionType Lesion and Equipment Action# Pressure Duration Attributes Used 15:12:28 Place stent Prox LAD DARREN OTW 3.0 1 14 00:30 x 12 stent ([id number]) Device Usage Item Name Manufacture Quantity Catalog Hospital Part Current Mini mal Lot# / Number Charge Number Stock Stock Serial# Code ACIST Syringe Acist 1 27366 422556 762719 886757 20 (69429) Medical Systems Inc Bag Decanter Microtek 1 847967 05553 305598 5 () Medical Inc. ACIST Hand Acist 1 70705 746063 439289 810508 5 Control Medical (50572) Systems Inc ACIST Acist 1 54155 518932 183283 782441 5 Manifold Medical (55538) Systems Inc DIAGNOSTIC Cardinal 1 OM9828 926779 67133 387384 30 Multipack 5Fr Health catheter set (CT0778) Tegaderm 4 x 3M 1 1626W 321238 602704 322993 5 4 (1626W) SHEATH 5FR Terumo 1 WVI886 191807 121032 123720 5 Spicer (TSX301) Medline Cath Medline 1 [id number] 372696 45587 928693 5 Pack ([id number]) DIAGNOSTIC St Joselito 1 630215 289342 523467 344287 30 WIRE .035 260cm J wire (931312) MULTIPACK JL Cardinal 1 452737 5 4.0 5Fr Health catheter SHEATH 6FR Terumo 1 WVC835 516512 518097 167092 40 Spicer (UUQ398) INFLATOR Merit 1 UE4420 641861 495192 939701 15 [facility] Medical BasixCompak (JH8686) MULTIPACK Cardinal 1 677028 5 3DRC 5Fr Health catheter MULTIPACK Cardinal 1 471581 5 Pigtail 5 Fr Health catheter GUIDE 6FR JL Medtronic 1 [id number] 706806 14795 157723 1 4.0 catheter (PN6FB57) WHISPER 300cm Spivey 1 [id number] 136215 599725 755833 5 guide wire Vascular ([id number]) DARREN OTW 3.0 Medtronic 1 [id number] 029086 3531383 651861 5 [id number] x 12 stent ([id number]) EXOSEAL 6Fr Cardinal 1 EX600 776508 050144 174257 10 (EX600) Health Signature Audit [place] Stage Time Signature Unsigned Intra-Procedure 05/16/2018 Bossman Bustos 3:19:49 PM RT(R) Signatures Monitor : Bossman Bustos RT Signature : Date : Time : [address] [facility] [place] [address]
[2018-05-16 12:47] VITALS: BP 123/69; Ht 162.6 cm; Wt 78.2 kg
[2018-05-16 13:02] LABS: BASOPHILS 0.3 % (0-2); EOSINOPHILS 6.2 % (0-7); HEMATOCRIT 39.7 % (36.0-48.0); HEMOGLOBIN 13.9 g/dL (12-16); IMMATURE GRANULOCYTES 0.1 % (0-5); LYMPHOCYTES 23.4 % (15-50); MCH 29.8 pg (26.0-34.0); MCV 85.2 fL (80.0-100.0); MEAN PLATELET VOLUME 10.9 fL (7.4-10.4); MONOCYTES 7.1 % (2-11); NEUTROPHILS 62.9 % (40-80); RBC 4.66 10x6/uL (4.00-5.40); RDW 13.5 % (11.5-14.5); WBC 6.7 10x3/uL (4.8-10.8)
[2018-05-16 13:03] LABS: PLATELET COUNT 168 10x3/uL (130-400)
[2018-05-16 13:11] LABS: ANION GAP 13.7 mmol/L (8-16); CALCIUM 9.1 mg/dL (8.5-10.1); CARBON DIOXIDE 25.3 mmol/L (21.0-32.0); CREATININE - SERUM 1.4 mg/dL (0.6-1.3)
--- NOTE | 2018-05-16 15:47 | NUR ---
RECIEVED TO ROOM VIA STRETCHER FROM PATIENT SAFETY SITTER WITH 6 FR EXOSEAL R/GROIN CDI NO BLEEDING OR HEMATOMA NOTED. PATIENT CONNECTED TO MONITOR FOR OBSERVATION WITH HR78 BP 141/72 CHEST PAIN DENIED. INSTRUCTED PATIENT TO KEEP HEAD FLAT ON PILLOW WITH RLE STRAIGHT
--- NOTE | 2018-05-16 16:00 | NUR ---
RESTING QUIETLY WITH NO DISTRESS VSS AND 6 FR EXOSEAL R/GROIN CDI FAMILY IS PRESENT AT BEDSIDE
--- NOTE | 2018-05-16 16:33 | NUR ---
6 FR EXOSEAL R/GROIN REMAINS CDI WITH NO BLEEDING OR HEMATOMA NOTED. VSS AND CHEST PAIN IS DENIED FAMILY IS PRESENT AT BEDSIDE
--- NOTE | 2018-05-16 17:20 | NUR ---
6 FR EXOSEAL R/GROIN CDI WITH NO BLEEDING OR HEMATOMA NOTED. PATIENT TOLERATING SANDWICH AND SODA WITH NAUSEA DENIED
--- NOTE | 2018-05-16 17:45 | NUR ---
VERBAL AND WRITTEN DISCHARGE GONE OVER WITH PATIENT AND FAMILY. 6 FR EXOSEAL R/GROIN REMAINS CDI
--- NOTE | 2018-05-16 18:15 | NUR ---
ASSISTED PATIENT WITH BEDPAN. VSS ON 2L NASAL CANNULA. RIGHT GROIN DRESSING IS CDI, NO S/S OF BLEEDING OR HEMATOMA.
--- NOTE | 2018-05-16 18:45 | NUR ---
HEAD OF BED ELEVATED TO 45 DEGREES. RIGHT GROIN DRESSING IS CDI, NO S/S OF BLEEDING OR HEMATOMA. VSS ON 1L NASAL CANNULA.
--- NOTE | 2018-05-16 19:15 | NUR ---
IV REMOVED. PATIENT TRANSPORTED VIA WHEELCHAIR TO CAR WITH FAMILY DRIVING. ALL BELONGINGS WITH PATIENT.
--- NOTE | 2018-05-27 12:54 | OP ---
PATIENT NAME: COOPER MCDERMOTT MEDICAL RECORD: [id number] :53 LOCATION:D.CAT ADMISSION DATE: SURGEON: ODETTE BLANK MD DATE OF OPERATION: 05/16/2018 PROCEDURE: Left heart catheterization, selective coronary angiography, right femoral artery approach. PTCA and stenting of the LAD. CATHETERS: A 5-Namibian sheath, 5/4 left and right Joya, 5/4 pig. The procedure was well tolerated. FINDINGS: Left ventriculography in 30-degree MCKEON view: Normal wall motion. Normal systolic function. CORONARY ANATOMY: LEFT MAIN: Left main is free of disease. LAD: Shows proximal end stent restenosis of about 90%. The rest of stent is widely patent. CIRCUMFLEX: Free of disease. RIGHT CORONARY: Previously placed stent is free of disease. IMPRESSION: In-stent restenosis. PLAN: Intervention momentarily. DESCRIPTION OF PROCEDURE: A 5-Namibian sheath was exchanged for a 6-Namibian sheath, which was placed across the tightly occluded LAD down this portion of the vessel. Stent deployed was a 3.0 x 12 Buck stent up to 14 atmospheres for 45 seconds. Final angiography shows excellent resolution of 80% to 90% end stent restenosis with no significant residual. MICHEL flow was 3 throughout the procedure. Heparin was used during the case. The patient was previously on Plavix. Sheath was closed with ExoSeal device. TRANSINT:[id number] Voice Confirmation ID: [id number] DOCUMENT ID: [id number] ODETTE BLANK MD at 1254 CC: [id number] DICTATION DATE: 05/16/18 1518 WEB DESIGN SPECIALIST: 05/16/18 1801 DEP CLI 05/16/18 [id number] [place] [address]
== END 2018-05-16 19:15 ==
LOC: D.CATH 11:51
PROVIDERS: Internal Medicine Interventional Cardiology
DX: I25.110 Atherosclerotic heart disease of native coronary artery with unstable angina pectoris (principal)

== ENCOUNTER → 2018-06-27 10:42 | Outpatient (CLI) | payer MEDICAID ==
[2018-05-16 12:47] VITALS: BMI 29.6
--- NOTE | 2018-06-29 13:10 | EC ---
PATIENT:COOPER MCDERMOTT DATE OF SERVICE: 06/27/18 SEX: F MEDICAL RECORD: [id number] DATE OF : 53 LOCATION:D.[facility] AGE OF PATIENT: 63 ADMISSION DATE: 06/27/18 REFERRING PHYSICIAN: INTERPRETING PHYSICIAN: ODETTE BLANK MD ECHOCARDIOGRAM REPORT ECHO CHARGES 4 ECHO COMPLETE Date: 06/27/18 CLINICAL DIAGNOSIS: HTN/CAD HX OF CAD/ANGINA ECHOCARDIOGRAPHIC MEASUREMENTS (adult normal given) AC root (d.<3.7cm) 3.5 cm LV Septum d (<1.2 cm> 1.5 cm Valve Excursion 1.4 cm LV Septum (systole) 1.7 cm Left Atria (s.<4.0cm> 3.9 cm LVPW d(<1.2cm) 1.4 cm RV (d.<2.3cm) 2.8 cm LVPW (sytole) 1.6 cm LV diastole(<5.6CM) 5.7 cm MV E-F(>70mm/sec) cm LV systole 4.3 cm LVOT Diameter 1.6 cm MV exc.(>10mm) 1.0 cm Est.ejection fraction (50-75%) % DOPPLER: LVIT cm/sec A 99.0 cm/sec E 54.0 cm/sec LA cm/sec RVSP 28 mmHg LVOT 151 cm/sec AOP1/2T 730 m/s Asc. Ao 177 cm/sec RVOT 90 cm/sec RA cm/sec PA 109 cm/sec AV Gradient Peak 12.56mmHg AV Mean 6.17 mmHg AV Area 1.9 cm MV Gradient Peak 8.03 mmHg MV Mean 2.34 mmHg MV Area cm COMMENTS: Still Cleaner: 2 IDALMIS CACERES Security Incident Response Specialist: 3 Dr. Peterson TAPE# PACS Pericardial Effusion N DATE OF SERVICE: Adequate 2D echo, color flow and spectral Doppler, M-mode. Mild LVH. LV internal dimensions are normal. Wall motion is normal. EF is greater than or equal to 55%. Aortic valve sclerosis without stenosis by Doppler interrogation. Left atrium normal at 3.9 cm. Mitral valve shows no prolapse. Trivial MR. Right-sided chambers grossly normal. Trace TR. TRANSINT:[id number] Voice Confirmation ID: [id number] DOCUMENT ID: [id number] ECHOCARDIOGRAM REPORT [id number] COOPER MCDERMOTT,ODETTE Juarez MD at 1310 CC: [id number] DICTATION DATE: 06/28/18 1356 SLAB POLISHER: 06/28/18 2346 DEP CLI 06/27/18 [place] [id number] [place] [address]
== END | disposition home or self-care (01) ==
LOC: D.HCCARDIO 10:42
PROVIDERS: ATTEND Internal Medicine Interventional Cardiology
DX: I10 Essential (primary) hypertension (principal)